=== PATIENT | female | born 1985 | race Caucasian/White ===

== ENCOUNTER 2020-10-07 21:51 | Emergency (ER) | payer BC | END 2020-10-08 00:01 | disposition left against medical advice (07) | LOC: ER1 21:51 | DX: Z53.21 Procedure and treatment not carried out due to patient leaving prior to being seen by health care provider (principal) ==

== ENCOUNTER 2021-07-19 14:40 | Emergency (ER) | payer BC ==
[2021-07-19] MEDS ORDERED: IBUPROFEN400 MG PO (18:18)
[2021-07-19] MEDS ORDERED: AUGMENTIN 875-1 EACH PO (18:18)
== END 2021-07-19 18:42 | disposition home or self-care (01) ==
LOC: ER1 14:40
DX: S01.81XA Laceration without foreign body of other part of head, initial encounter (principal); S51.832A Puncture wound without foreign body of left forearm, initial encounter; S01.432A Puncture wound without foreign body of left cheek and temporomandibular area, initial encounter; S51.812A Laceration without foreign body of left forearm, initial encounter; W54.0XXA Bitten by dog, initial encounter
CPT/HCPCS: 12002; 12011; 70150; 73090; 99283